=== PATIENT | female | born 1975 | race Hispanic/Latino ===

== ENCOUNTER 2017-01-25 02:44 | Emergency (ER) | payer OTHER ==
[~2017-01-25] VITALS: Ht 154.9 cm; Wt 95.5 kg
[~2017-01-25 02:44] MED LIST: GLIP10TA10 PO; HYDR-4003 PO; METF500T4 PO; MUPI15CR TOPICAL; NORE1TAB24 PO; PRE20 PO; PREN-100 PO; SULF1TAB7 PO
[2017-01-25 02:53] VITALS: BP 119/86; RESP 18; O2SAT 97
[2017-01-25] MEDS ORDERED: _Gentamicin 0.3% Oph Solution 5 mL AFFECT_EYE SCH (03:45)
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
[2017-01-25] MEDS ORDERED: _Amoxicillin 500 mg Capsule PO SCH (08:30)
== END 2017-01-25 04:20 | disposition home or self-care (01) ==
LOC: SED 02:44
DX: H66.002 Acute suppurative otitis media without spontaneous rupture of ear drum, left ear (principal); H10.33 Unspecified acute conjunctivitis, bilateral; J02.9 Acute pharyngitis, unspecified; R05 Cough; R51 Headache; E11.9 Type 2 diabetes mellitus without complications; Z79.84 Long term (current) use of oral hypoglycemic drugs

== ENCOUNTER 2017-05-31 10:57 | Emergency (ER) | payer OTHER ==
[~2017-05-31] VITALS: Ht 154.9 cm; Wt 92.7 kg
[2017-05-31 11:04] VITALS: BP 124/86; PULSE 91; RESP 18; O2SAT 97
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
[2017-05-31 11:25] LABS: BASOPHILS % (AUTO) 0.3 % (0-3); EOSINOPHILS % (AUTO) 1.5 % (0-5); MONOCYTES % (AUTO) 5.6 % (4-12); Mean Corpuscular Hemoglobin 31.1 pg (27.0-35.0); Mean Corpuscular Volume 90.3 fL (81-100); NEUTROPHILS % (AUTO) 51.4 % (40-74); Platelet Count 200 bil/L (150-400)
[2017-05-31 11:46] LABS: TROPONIN T 0.01 ug/L (0.0-0.011)
--- NOTE | 2017-05-31 11:52 | DRSVH ---
PROCEDURE: X-RAY CHEST ONE VIEW, PORTABLE ([id number]) INDICATIONS: CHEST PAIN TECHNIQUE: One view of the chest was acquired. COMPARISON: [facility], CR, CHEST 1VW, 02/22/2015, 16:50. [facility], CR, XR CHEST 1VW (PORTABLE), 09/27/2015, 19:10. FINDINGS: Surgical changes and devices: None. Lungs and pleura: No pleural effusions or pneumothorax. Lungs are clear. Mediastinum: Mediastinal contours appear normal. Heart size is normal. Bones and chest wall: No suspicious bony lesions. Overlying soft tissues appear unremarkable. IMPRESSION: No acute cardiopulmonary disease. Dictated by: Trinidad Villasenor M.D. on 05/31/2017 at 11:50 Approved by: Trinidad Villasenor M.D. on 05/31/2017 at 11:51
[2017-05-31 11:57] LABS: Magnesium 1.7 mg/dL (1.6-2.6)
[2017-05-31 12:00] VITALS: BP 109/71; PULSE 87; RESP 20; O2SAT 98
[2017-05-31] MEDS ORDERED: ASPI-973 PO (12:37)
[2017-05-31] MEDS ORDERED: METF500T4 PO (12:37)
[2017-05-31 13:11] VITALS: BP 117/65; PULSE 85; RESP 25; O2SAT 99
== END 2017-05-31 13:00 | disposition home or self-care (01) ==
LOC: SED 10:57
DX: R07.89 Other chest pain (principal); E11.9 Type 2 diabetes mellitus without complications; Z79.82 Long term (current) use of aspirin; Z79.84 Long term (current) use of oral hypoglycemic drugs